=== PATIENT | female | born 1955 | race Asian ===

== ENCOUNTER 2024-06-25 04:59 | Emergency (ER) | payer OTHER ==
[~2024-06-25] VITALS: Ht 154.9 cm; Wt 70.3 kg
[2024-06-25] MEDS ORDERED: Diphth,Pertuss(Acell),Tet Vac 0.5 ML VIAL IM ONE (05:05)
[2024-06-25 05:12] LABS: BASOPHILS ABSOLUTE AUTO 0.03 K/mm3 (0.00-0.23); BASOPHILS PERCENT AUTO 0 % (0-2); EOSINOPHILS PERCENT AUTO 1 % (0-6); Hematocrit 27.8 % (33.0-51.0); Hemoglobin 9.3 g/dL (11.5-16.0); IMMATURE GRAN ABSOLUTE AUTO 0.22 K/mm3 (0.00-0.10); IMMATURE GRAN PERCENT AUTO 2 % (0-1); LYMPHOCYTES ABSOLUTE AUTO 4.51 K/mm3 (0.84-5.20); LYMPHOCYTES PERCENT AUTO 31 % (21-46); MONOCYTES PERCENT AUTO 3 % (4-13); Mean Corpuscular HGB 30.1 pg (26.0-34.0); Mean Corpuscular HGB Conc 33.5 g/dL (31.5-36.5); Mean Corpuscular Volume 90 fL (80-100); NEUTROPHILS PERCENT AUTO 63 % (41-73); NRBC ABSOLUTE 0.02 K/mm3 (0.00-0.02); NRBC Auto 0.1 /100 WBC (0.0-0.2); Platelet Count 194 K/mm3 (150-400); RDW Coefficient Variation 12.9 % (11.7-14.2); RDW Standard Deviation 42.1 fL (35.1-46.3); Red Blood Cell Count 3.09 M/mm3 (3.80-5.20); White Blood Cell Count 14.66 K/mm3 (4.00-11.30)
[2024-06-25] MEDS ORDERED: NS 1,000 ML IV ONE ×3 (05:12→06:34)
[2024-06-25] MEDS ORDERED: Midazolam HCL 50 MG in NS 40 ML IV PRN (05:25)
[2024-06-25] MEDS ORDERED: fentaNYL citrate 1,000 MCG in NS 80 ML IV SCH (05:30)
[2024-06-25 05:35] LABS: Alanine Aminotransfer (ALT/SGP 38 U/L (12-78); Albumin, Blood 2.7 g/dL (3.4-5.0); Alk Phos 43 U/L (50-136); Anion Gap 10 mmol/L (3-11); Aspartate Aminotrans (AST/SGOT 46 U/L (12-37); Bilirubin, Total 0.3 mg/dL (0.1-1.0); Blood Urea Nitrogen 14 mg/dL (8-24); Bun/Creatinine Ratio 19.8 (12.0-20.0); CO2, Blood 22 mmol/L (21-32); Chloride, Blood 110 mmol/L (98-108); Creatinine, Blood 0.71 mg/dL (0.40-1.00); Ethanol (Alcohol), Blood, Med <3 mg/dL; Globulin, Blood 2.6 g/dL (2.2-4.0); Glomerular Filtration Rate 66 (60-); Glucose, Blood 271 mg/dL (70-99); Potassium, Blood 3.2 mmol/L (3.5-5.5); Sodium, Blood 139 mmol/L (136-145); Total Protein, Blood 5.3 g/dL (6.4-8.2)
[2024-06-25] MEDS ORDERED: Sodium Chloride 3% 500 ML IV SCH (06:15)
[2024-06-25 06:30] LABS: Source, Urine Fem Cath
[2024-06-25 06:36] LABS: Bilirubin, Urine Neg (Neg); Blood, Urine 5+ (Neg); Glucose Qualitative, Urine Neg (Neg); Ketones, Urine Neg (Neg); Leukocyte Esterase, Urine Neg (Neg); Nitrite, Urine Neg (Neg); Protein, Urine 2+ (Neg); Specific Gravity, Urine 1.005 (1.003-1.022); Urobilinogen, Urine NORM (Normal); pH, Urine 6.5 (5.0-8.0)
[2024-06-25 06:42] LABS: Appearance, Urine Clear (Clear); Color, Urine Yellow (P-Yellow)
[2024-06-25 06:52] LABS: White Blood Cells, Urine 0-2 /hpf (0-5)
[2024-06-25 06:53] LABS: Amorphous Light (0-Heavy); Bacteria Few /hpf; Squamous Epithelial Cells Not Seen /hpf (Few)
[2024-06-26] MEDS ORDERED: Rocuronium Bromide 10 MG/ML 5ML Injection IV ONE (18:24)
[2024-06-26] MEDS ORDERED: Etomidate 2MG / ML 10ML Vial IV ONE (18:24)
== END 2024-06-25 07:14 | disposition short-term general hospital (02) ==
LOC: EDBD 04:59 → ER 04:59
PROVIDERS: Emergency Medicine
DX: S06.6X9A Traumatic subarachnoid hemorrhage with loss of consciousness of unspecified duration, initial encounter (principal); S06.5X9A Traumatic subdural hemorrhage with loss of consciousness of unspecified duration, initial encounter; S27.1XXA Traumatic hemothorax, initial encounter; S42.212A Unspecified displaced fracture of surgical neck of left humerus, initial encounter for closed fracture; S42.101A Fracture of unspecified part of scapula, right shoulder, initial encounter for closed fracture; J96.01 Acute respiratory failure with hypoxia; V89.2XXA Person injured in unspecified motor-vehicle accident, traffic, initial encounter
CPT/HCPCS: 31500; 36430; 51702; 70450; 71045; 71260; 72125; 73060; 74177; 80053; 80320; 81001; 83605; 84484; 85025; 86850; 86900; 86901; 86920; 94002; 96365-59; 99285-25; J2250; J3010; J7030; P9016; Q9967